=== PATIENT | female | born 1995 | race Caucasian/White ===

== ENCOUNTER 2025-03-21 20:49 | Emergency (ER) | payer BC ==
[2025-03-21] MEDS: SODIUM CHLORIDE 1,000 ML IV STA (21:19)
[2025-03-21] MEDS ORDERED: ONDANSETRON 4 MG/2 ML VIAL ONE (21:20)
[2025-03-21] MEDS ORDERED: KETOROLAC TROMETHAMINE 15 MG/ML VIAL ONE (21:20)
[2025-03-21] MEDS: KETOROLAC TROMETHAMINE 30 MG/1 ML VIAL IVPUSH ONE (21:22)
[2025-03-21] MEDS: ONDANSETRON 4 MG/2 ML VIAL IVPUSH ONE (21:23)
[2025-03-21 21:25] VITALS: BP 134/84; PULSE 74; RESP 18; TEMP 97.5; BMI 20.9
[2025-03-21 21:29] LABS: HEMATOCRIT 43.5 % (34.1-44.9); HEMOGLOBIN 14.9 g/dL (11.2-15.7); MCHC 34.3 g/dl (32.2-35.5); MEAN CELL VOLUME 82.4 fl (79.4-94.8); MEAN PLT VOLUME 10.4 fl (9.4-12.3); PLATELET COUNT 326 x10^3/uL (182-369); RDW 13.5 % (12.1-16.8)
[2025-03-21 21:49] LABS: ALBUMIN 4.5 g/dl (3.4-5.0); BILIRUBIN,TOTAL 0.8 mg/dl (0.2-1); CALCIUM 10.2 mg/dl (8.5-10.1); CREATININE 0.6 mg/dl (0.6-1.3); POTASSIUM 4.1 mmol/L (3.5-5.1); TOT PROT 6.8 g/dl (6.4-8.2)
[2025-03-21 23:56] LABS: HCV DIAGNOSTIC IN-HOUSE W/RFLX NON-REACTIVE (NONREACTIVE)
[2025-03-21 23:57] LABS: HIV INTERPRETATION NEGATIVE (NEGATIVE)
== END 2025-03-22 02:35 | disposition home or self-care (01) ==
LOC: FER 20:49
PROC: 3E0333Z Introduction of Anti-inflammatory into Peripheral Vein, Percutaneous Approach (ICD-10-PCS; principal; 2025-03-21)
PROC: 3E033GC Introduction of Other Therapeutic Substance into Peripheral Vein, Percutaneous Approach (ICD-10-PCS; 2025-03-21)
PROC: 3E0337Z Introduction of Electrolytic and Water Balance Substance into Peripheral Vein, Percutaneous Approach (ICD-10-PCS; 2025-03-21)
DX: R10.11 Right upper quadrant pain (principal); R10.13 Epigastric pain; R11.2 Nausea with vomiting, unspecified
CPT/HCPCS: 36415; 74177-TC; 76705-TC; 80053; 81003; 81025; 83690; 85025; 86803; 87389; 99285-25; Q9967